=== PATIENT | male | born 1945 | race Two or more races ===

== ENCOUNTER 2020-08-09 16:13 | Emergency (ER) | payer MEDICARE, OTHER ==
[~2020-08-09] VITALS: Ht 170.2 cm; Wt 108.9 kg
[2020-08-09] MEDS ORDERED: htn med (16:47)
[2020-08-09 17:40] VITALS: BP 146/80
[2020-08-09 18:27] LABS: BASOPHILS % (AUTO) 1.6 % (0.0-2.0); EOSINOPHILS % (AUTO) 2.3 % (0.0-3.0); HEMATOCRIT 43.1 % (42.0-52.0); HEMOGLOBIN 14.8 G/DL (14.2-18.0); LYMPHOCYTES % (AUTO) 30.7 % (20.0-45.0); MEAN CORPUSCULAR VOLUME 91 FL (80-99); MONOCYTES % (AUTO) 6.8 % (1.0-10.0); NEUTROPHILS % (AUTO) 58.7 % (45.0-75.0); PLATELET COUNT 194 K/UL (150-450); RED BLOOD COUNT 4.75 M/UL (4.70-6.10); RED CELL DISTRIBUTION WIDTH 12.7 % (11.6-14.8); WHITE BLOOD COUNT 7.9 K/UL (4.8-10.8)
[2020-08-09 18:38] LABS: APPEARANCE,URINE CLEAR; BILIRUBIN, URINE NEGATIVE (NEGATIVE); COLOR,URINE PALE YELLOW; GLUCOSE, URINE (UA) NEGATIVE (NEGATIVE); KETONES,URINE NEGATIVE (NEGATIVE); LEUKOCYTE ESTERASE ,URINE NEGATIVE (NEGATIVE); NITRITE,URINE NEGATIVE (NEGATIVE); PH,URINE 5 (4.5-8.0); PROTEIN,URINE NEGATIVE (NEGATIVE); UROBILINOGEN,URINE NORMAL MG/DL (0.0-1.0)
[2020-08-09 18:54] LABS: ANION GAP 7 mmol/L (5-15); BLOOD UREA NITROGEN 25 mg/dL (7-18); CALCIUM 8.5 MG/DL (8.5-10.1); CARBON DIOXIDE 27 MMOL/L (21-32); CHLORIDE 104 MMOL/L (98-107); POTASSIUM 4.6 MMOL/L (3.5-5.1); SODIUM 138 MMOL/L (136-145)
[2020-08-09 19:12] LABS: ALANINE AMINOTRANSFERASE 30 U/L (12-78); ALBUMIN/GLOBULIN RATIO 1.1 (1.0-2.7); ALKALINE PHOSPHATASE 79 U/L (46-116); ASPARTATE AMINO TRANSFERASE 17 U/L (15-37); BILIRUBIN,TOTAL 0.3 MG/DL (0.2-1.0); CKMB 4.8 NG/ML (0.0-3.6); CREATINE KINASE 283 U/L (26-308); FERRITIN 40 NG/ML (8-388); LACTATE DEHYDROGENASE 160 U/L (81-234); PHOSPHORUS 3.7 MG/DL (2.5-4.9)
--- NOTE | 2020-08-09 21:20 | Emergency Room Report ---
History of Present Illness General Chief Complaint: General Complaint Source: Patient Present Illness HPI This patient has a history of chronic low back pain. He has been evaluated by other medical providers previously for the ongoing back pain. He states that at times he will get pain radiating down one of his legs. He also occasionally gets numbness and tingling on the sides of his feet. He denies loss of bowel or bladder control. He presents to the emergency department today because when he stands from a sitting position his legs will tremble uncontrollably. He states that he feels unstable and that he will fall. He denies recent trauma. He denies numbness or tingling at this time. He was recently diagnosed with carpal tunnel of both his hands. He denies recent illness. He denies fever or chills. He has not fallen and he can ambulate but the new symptoms over the past week have been very debilitating to the point that he is even called his family members to come pick him up as he is afraid to drive. He denies headache or neck pain. He has no other complaints. Allergies: Coded Allergies: No Known Allergies (Unverified , 08/09/20) COVID-19 Screening Contact w/high risk pt: No Experienced COVID-19 symptoms?: No COVID-19 Testing performed PUBLIC RELATIONS ASSISTANT: No Patient History Past Medical History: see triage record, HTN Social History: Denies: smoking, alcohol use, drug use Reviewed Nursing Documentation: PMH: Agreed; PSxH: Agreed Nursing Documentation-PM Past Medical History: No History, Except For Hx Hypertension: Yes Review of Systems All Other Systems: negative except mentioned in HPI Physical Exam Vital Signs Date Time Temp Pulse Resp B/P (MAP) Pulse Ox O2 Delivery O2 Flow Rate FiO2 08/09/20 16:39 98.4 75 20 146/80 (102) 95 Room Air Sp02 EP Interpretation: reviewed, normal General Appearance: no apparent distress, alert, GCS 15, non-toxic Head: normocephalic, atraumatic Eyes: bilateral eye normal inspection, bilateral eye PERRL ENT: hearing grossly normal, normal pharynx, no angioedema, normal voice Neck: full range of motion, supple/symm/no masses Respiratory: chest non-tender, lungs clear, normal breath sounds, no respiratory distress, no retraction, no accessory muscle use, speaking full s entences Cardiovascular #1: regular rate, rhythm, no edema Gastrointestinal: normal bowel sounds, non tender, soft, non-distended, no guarding, no rebound Rectal: deferred Musculoskeletal: normal range of motion, non-tender, other - Trembling legs with standing and ambulation. 5/5 MS throughout. sensation intact throughout. Neurologic: alert, motor strength/tone normal, oriented x3, sensory intact, responsive, speech normal Psychiatric: judgement/insight normal, memory normal, mood/affect normal, no s uicidal/homicidal ideation Skin: no rash, normal color Medical Decision Making Diagnostic Impression: Primary Impression: Spinal stenosis Additional Impressions: Cauda equina compression Renal insufficiency ER Course This patient presents with a trembling in his legs with walking and standing. I was concerned about the Thoraco-lumbar region of the spinal cord when I initially evaluated this patient. Differential diagnosis included: Spinal cord compression, electrolyte abnormality, [place] L[place] syndrome, spondylitis, infection to name a few. Given symptoms that I was concerned could be related to the Thoraco-lumbar spine, I decided to obtain an MRI of the Thoracic and lumbar spine. 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 Although this was not an acute cauda equina syndrome causing significant neurologic deficit that would require an emergency surgery, I felt that given the patient's age and the progression of the patient's symptoms, that this patient should be transferred for higher level of care to be evaluated by neurosurgery and spinal surgery. I am concerned that this patient could develop worsening cauda equina compression that could cause permanent neurologic damage. The patient was accepted by [facility] neurosurgical attending. He was transferred in stable condition to [facility] for higher level of care. This patient required complex medical decision-making, aggressive intervention, radiologic testing and extensive laboratory workup and monitoring. Critical care time: 40 minutes. This patient was evaluated in the context of the global COVID-19 pandemic, which necessitated consideration that the patient might be at risk for infection with the [id number] virus that causes COVID-19. Institutional protocols and algorithms that pertain to the evaluation of patients at risk for COVID-19 and the state of rapid change based on information released by multiple regulatory bodies including the CDC and federal and state organizations. These policies and algorithms were followed during the patient's care in the ED. Laboratory Tests Test 08/09/20 17:50 White Blood Count 7.9 K/UL (4.8-10.8) Red Blood Count 4.75 M/UL (4.70-6.10) Hemoglobin 14.8 G/DL (14.2-18.0) Hematocrit 43.1 % (42.0-52.0) Mean Corpuscular Volume 91 FL (80-99) Mean Corpuscular Hemoglobin 31.1 PG (27.0-31.0) H Mean Corpuscular Hemoglobin Concent 34.3 G/DL (32.0-36.0) Red Cell Distribution Width 12.7 % (11.6-14.8) Platelet Count 194 K/UL (150-450) Mean Platelet Volume 9.7 FL (6.5-10.1) Neutrophils (%) (Auto) 58.7 % (45.0-75.0) Lymphocytes (%) (Auto) 30.7 % (20.0-45.0) Monocytes (%) (Auto) 6.8 % (1.0-10.0) Eosinophils (%) (Auto) 2.3 % (0.0-3.0) Basophils (%) (Auto) 1.6 % (0.0-2.0) D-Dimer 1.20 mg/L FEU (0.00-0.49) H Urine Color Pale yellow Urine Appearance Clear Urine pH 5 (4.5-8.0) Urine Specific [place] 1.015 (1.005-1.035) Urine Protein Negative (NEGATIVE) Urine Glucose (UA) Negative (NEGATIVE) Urine Ketones Negative (NEGATIVE) Urine Blood Negative (NEGATIVE) Urine Nitrite Negative (NEGATIVE) Urine Bilirubin Negative (NEGATIVE) Urine Urobilinogen Normal MG/DL (0.0-1.0) Urine Leukocyte Esterase Negative (NEGATIVE) Sodium Level 138 MMOL/L (136-145) Potassium Level 4.6 MMOL/L (3.5-5.1) Chloride Level 104 MMOL/L (98-107) Carbon Dioxide Level 27 MMOL/L (21-32) Anion Gap 7 mmol/L (5-15) Blood Urea Nitrogen 25 mg/dL (7-18) H Creatinine 2.0 MG/DL (0.55-1.30) H Estimated Glomerular Filtration Rate 32.9 mL/min (>60) Glucose Level 107 MG/DL (74-106) H Lactic Acid Level 1.30 mmol/L (0.4-2.0) Calcium Level 8.5 MG/DL (8.5-10.1) Phosphorus Level 3.7 MG/DL (2.5-4.9) Magnesium Level 2.1 MG/DL (1.8-2.4) Ferritin 40 NG/ML (8-388) Total Bilirubin 0.3 MG/DL (0.2-1.0) Aspartate Amino Transferase (AST) 17 U/L (15-37) Alanine Aminotransferase (ALT) 30 U/L (12-78) Alkaline Phosphatase 79 U/L (46-116) Lactate Dehydrogenase 160 U/L (81-234) Total Creatine Kinase 283 U/L (26-308) Creatine Kinase MB 4.8 NG/ML (0.0-3.6) H Creatine Kinase MB Relative Index 1.6 Troponin I 0.000 ng/mL (0.000-0.056) C-Reactive Protein, Quantitative < 0.4 mg/dL (0.00-0.90) Total Protein 7.5 G/DL (6.4-8.2) Albumin 4.0 G/DL (3.4-5.0) Globulin 3.5 g/dL Albumin/Globulin Ratio 1.1 (1.0-2.7) Thyroid Stimulating Hormone (TSH) 0.899 uiU/mL (0.358-3.740) Free Thyroxine 1.07 NG/DL (0.76-1.46) Microbiology Date/Time Source Procedure Growth Status 08/09/20 18:11 Nasopharynx SARS-CoV-2 RdRp Gene Assay - Final Complete EKG Diagnostic Results Rate: normal Rhythm: NSR ST Segments: no acute changes Rhythm Strip Diag. 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 Spinal canal stenosis, greatest at L4-5 which is severe with compression of the cauda equina. MRI T-spine: IMPRESSION: Mild thoracic degenerative disc disease without significant spinal canal or foraminal narrowing. Last Vital Signs Date Time Temp Pulse Resp B/P (MAP) Pulse Ox O2 Delivery O2 Flow Rate FiO2 08/09/20 17:40 75 20 Room Air 08/09/20 17:40 98.4 146/80 95 Status: improved Disposition: SHORT-TERM HOSP Condition: Stable Referrals: NON PHYSICIAN (PCP) Elizabeht Dave DO Aug 09, 2020 21:20
--- NOTE | 2020-08-09 21:31 | Diagnostic Imaging Report ---
EXAM: MR Lumbar Spine Without Intravenous Contrast CLINICAL HISTORY: WEAK TECHNIQUE: Magnetic resonance images of the lumbar spine without intravenous contrast in multiple planes. COMPARISON: No relevant prior studies available. FINDINGS: Vertebrae: There is some congenital spinal canal narrowing. Lumbar degenerative disc disease and facet arthropathy. Mild loss of disc height. Opposing endplate osteophyte formation. There is ligamentum flavum thickening. Mild grade 1 anterolisthesis of L4 on L5, presumably degenerative. No acute fracture. Spinal cord: Normal signal. Soft tissues: No acute findings. Kidneys and ureters: Cyst in the interpolar region of the right kidney. Congenital spinal canal stenosis and acquired degenerative changes as described below. DISCS/SPINAL CANAL/NEURAL FORAMINA: L1-L2: facet arthropathy and ligamentum flavum thickening without significant stenosis. L2-L3: Facet arthropathy and ligament flavum thickening. Mild spinal canal stenosis. L3-L4: Facet arthropathy and ligament flavum thickening. Fluid signal in the facets. Posterior disc bulge. Disc osteophyte complex results in moderate spinal canal stenosis. There is compression of the thecal sac and crowding of the cauda equina. Narrowing of the lateral recesses. Mild bilateral neural foraminal narrowing. L4-L5: Facet arthropathy. Posterior annular fissures. Posterior disc bulge. Disc osteophyte complex and congenital spinal canal narrowing resulting in severe spinal canal stenosis with compression of the cauda equina. Severe narrowing of the lateral recesses. Moderate to severe bilateral neural foraminal narrowing. L5-S1: Posterior disc bulge. Disc osteophyte complexes. Facet arthropathy results in mild spinal canal stenosis. Moderate to severe bilateral neural foraminal narrowing. 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 Spinal canal stenosis, greatest at L4-5 which is severe with compression of the cauda equina. <MYCVCSECTION> Communications: 08/09/20 21:56 Verify Receipt Verified receipt with ANDRE Ferguson, given to Dr. Dave on 08/09 21:56 (-07:00)
--- NOTE | 2020-08-09 21:36 | Diagnostic Imaging Report ---
EXAM: MR Thoracic Spine Without Intravenous Contrast CLINICAL HISTORY: WEAK TECHNIQUE: Magnetic resonance images of the thoracic spine without intravenous contrast in multiple planes. COMPARISON: No relevant prior studies available. FINDINGS: Vertebrae: There is some mild chronic anterior vertebral body wedging at T11. No acute fracture or subluxation. Discs/spinal canal/neural foramina: Mild thoracic degenerative disc disease. Mild loss disc height and endplate osteophyte formation. Small right posterior central disc protrusion at T6-7 resulting in mild spinal canal narrowing. Minimal left posterior central disc protrusion T10-11 without significant spinal canal narrowing. Mild posterior disc bulge at T11-T12 resulting in mild spinal canal narrowing. Spinal cord: Normal signal. Soft tissues: No acute findings. Kidneys and ureters: Cyst in the right kidney. IMPRESSION: Mild thoracic degenerative disc disease without significant spinal canal or foraminal narrowing.
[2020-08-10 00:21] VITALS: BP 130/63
[2020-08-10 00:51] VITALS: BP 131/72
--- NOTE | 2020-08-10 14:09 | Diagnostic Imaging Report ---
Indication: Reason For Exam: Chest pain Technique: Single AP view of the chest. Comparison: None. Findings: Cardial mediastinal silhouette is unremarkable and accounting for projection and technique. No airspace consolidation. No pneumothorax or pleural effusion. No acute osseous abnormality. IMPRESSION: No radiographic evidence of acute cardiopulmonary process
== END 2020-08-10 00:45 | disposition short-term general hospital (02) ==
LOC: EMR 17:00
DX: M48.061 Spinal stenosis, lumbar region without neurogenic claudication (principal); G83.4 Cauda equina syndrome; N28.9 Disorder of kidney and ureter, unspecified; I10 Essential (primary) hypertension
CPT/HCPCS: 36415; 71045; 72146; 72148; 80053; 81003; 82550; 82553; 82728; 83605; 83615; 83735; 84100; 84439; 84443; 84484; 85025; 85379; 86140; 93005; 99291; U0002